=== PATIENT | male | born 1960 | race Caucasian/White ===

== ENCOUNTER → 2021-01-10 | Outpatient (CLI) | payer BC ==
[~2021-01-10] MED LIST: IOHEXOL 240 MG/ML 50ML VIAL. PO ONE; IOHEXOL 300 MG/ML 100ML VIAL. IV ONE
--- NOTE | 2021-01-10 14:19 | RAD ---
EXAM: Abdomen and pelvis CT with intravenous contrast. HISTORY: Pain and weight loss. TECHNIQUE: Computed tomographic images of the abdomen and pelvis were obtained following the administ ration of intravenous contrast. Multiplanar reformatting was performed. *One or more of the following individualized dose reduction techniques were utilized for this examina tion: 1. Automated exposure control. 2. Adjustment of the mA and/or kV according to patient size. 3. Use of iterative reconstruction technique. COMPARISON: None. FINDINGS: Evaluation of the lower thorax demonstrates no infiltrate or pleural effusion. There is a s mall hiatal hernia and there is postoperative change involving the stomach. There is calcified athero sclerotic plaque involving the coronary arteries. There are hepatic and splenic granulomas. No suspic ious hepatic or splenic lesion is seen. The gallbladder, pancreas and adrenal glands are unremarkable . The kidneys are unremarkable. There is evidence of prior ventral abdominal wall hernia repair. There are small fat-containing supra umbilical hernias superior to the mesh, the largest of which measures 5.6 cm. There is no appendiciti s. There is no bowel obstruction. The bladder is unremarkable. The aorta is normal in caliber. There is no lymphadenopathy. There are degenerative changes throughout the spine. IMPRESSION: 1. Small fat-containing ventral abdominal wall hernias superior to the mesh related to prior hernia r epair. There is no evidence of incarceration. 2. Postoperative changes involving the stomach and small hiatal hernia. 3. No acute abdominal or pelvic finding. Electronically signed by: Delmy Rico MD (01/10/2021 2:16 PM) [id number]
== END ==
LOC: CT 12:57
PROVIDERS: ATTEND Family Medicine
DX: K43.9 Ventral hernia without obstruction or gangrene (principal); K44.9 Diaphragmatic hernia without obstruction or gangrene; K46.9 Unspecified abdominal hernia without obstruction or gangrene; R63.4 Abnormal weight loss
CPT/HCPCS: 74177; Q9966; Q9967